=== PATIENT | male | born 1945 | race Caucasian/White ===

== ENCOUNTER 2016-06-11 13:03 | Emergency (ER) | payer MEDICARE, OTHER ==
[~2016-06-11 13:03] MED LIST: BRIMONIDINE0.2 % OPH; CRESTOR20 MG PO; DOSTINEX PO; DSS PO; FLOMAX4 PO; FOLIC ACID800 MCG PO; ILEVRO1.7 ML OPH; LANTUSCART SC; LEVOTHYROXIN125 MCG PO; METPAKSF PO; NORV10 PO; NOVOPEN SC; P5 PO; PLAVIX PO; PROTONIX PO; SPIRO50 PO; SYSTANE OPH; TRUSOPT2 % OPH; VITAMIN B-122500 MCG SL; VITAMIN D2000 UNIT PO; XALAT OPH; [UNRECOGNIZED DRUG - OTHER]
== END 2016-06-11 15:01 | disposition home or self-care (01) ==
LOC: ER 13:03
PROC: 0WQ2XZZ Repair Face, External Approach (ICD-10-PCS; principal; 2016-06-11)
DX: S01.81XA Laceration without foreign body of other part of head, initial encounter (principal); S02.2XXA Fracture of nasal bones, initial encounter for closed fracture; I10 Essential (primary) hypertension; E11.9 Type 2 diabetes mellitus without complications; Z87.442 Personal history of urinary calculi; Z86.73 Personal history of transient ischemic attack (TIA), and cerebral infarction without residual deficits; Z88.8 Allergy status to other drugs, medicaments and biological substances; Z79.4 Long term (current) use of insulin; Z79.899 Other long term (current) drug therapy; W19.XXXA Unspecified fall, initial encounter
CPT/HCPCS: 70450; 70486; 72125; 90471; 90714; 99285

== ENCOUNTER 2016-08-21 07:48 | Day surgery (SDC) | payer MEDICARE, OTHER ==
[2016-08-19 14:35] LABS: HEMATOCRIT 42.7 % (40.0-51.0); HEMOGLOBIN 13.9 g/dL (13.6-17.8)
[2016-08-19 14:50] LABS: BUN (BLOOD UREA NITROGEN) 26 MG/DL (6-23); CALCIUM, SERUM 9.5 MG/DL (8.5-10.4); CHLORIDE, SERUM 103 MMOL/L (96-112); CO2 (CARBON DIOXIDE) 27 MMOL/L (24-34); CREATININE 1.76 MG/DL (0.70-1.30); GFR AFRICAN AMERICAN 44 ML/MIN (>=60); GFR NON AFRICAN AMERICAN 38 ML/MIN (>=60); GLUCOSE, SERUM 107 MG/DL (60-99); POTASSIUM, SERUM 4.8 MMOL/L (3.5-5.3); SODIUM, SERUM 140 MMOL/L (135-148)
== END 2016-08-21 17:45 | disposition home or self-care (01) ==
LOC: SDC 07:48
PROVIDERS: Ophthalmology
PROC: 08RK3JZ Replacement of Left Lens with Synthetic Substitute, Percutaneous Approach (ICD-10-PCS; principal; 2016-08-21 10:30)
DX: H25.12 Age-related nuclear cataract, left eye (principal); I10 Essential (primary) hypertension; E11.9 Type 2 diabetes mellitus without complications; I48.91 Unspecified atrial fibrillation; G47.33 Obstructive sleep apnea (adult) (pediatric); Z86.73 Personal history of transient ischemic attack (TIA), and cerebral infarction without residual deficits; Z79.4 Long term (current) use of insulin; Z88.8 Allergy status to other drugs, medicaments and biological substances; Z79.899 Other long term (current) drug therapy; Z98.41 Cataract extraction status, right eye; Z98.890 Other specified postprocedural states; Z87.442 Personal history of urinary calculi
CPT/HCPCS: 80048; 82962; 85014; 85018; 93005; J3010